=== PATIENT | female | born 1985 | race Caucasian/White ===

== ENCOUNTER → 2017-12-16 11:58 | Outpatient (CLI) | payer OTHER, SELFPAY ==
[2017-12-16 13:28] LABS: Thyroid Stim Hormone (TSH) 2.71 uIU/mL (0.358-3.74)
[2017-12-20 10:56] LABS: Anti-Thyroglobulin AB < 1.0 IU/mL (0.0-0.9); Thyroglobulin, Serum Qt. 17.7 ng/mL (1.5-38.5); Thyroid Peroxidase AB 11 IU/mL (0-34)
== END ==
PROVIDERS: Family Provider Internal Medicine; PCP Internal Medicine; Visit Provider Internal Medicine
DX: R53.83 Other fatigue (principal)
CPT/HCPCS: 36415; 84432; 84443; 86376; 86800

== ENCOUNTER → 2018-03-18 13:15 | Outpatient (CLI) | payer OTHER, SELFPAY ==
[2018-03-18 14:53] LABS: Potassium 4.3 mmol/L (3.5-5.1)
== END ==
PROVIDERS: Family Provider Internal Medicine; PCP Internal Medicine; Referring Provider Dermatology; Visit Provider Dermatology
DX: L72.8 Other follicular cysts of the skin and subcutaneous tissue (principal); Z79.899 Other long term (current) drug therapy
CPT/HCPCS: 36415; 84132

== ENCOUNTER 2021-07-07 14:18 | Outpatient (CLI) | payer BC, SELFPAY ==
--- NOTE | 2021-07-07 14:30 | CT_ITS ---
EXAM: CT MAXILLOFACIAL SINUSES WITHOUT INTRAVENOUS CONTRAST CLINICAL INDICATION: SINUSITIS TECHNIQUE: Helically acquired images were obtained of the maxillofacial sinuses without intravenous contrast. This CT exam was performed using one or more of the following dose reduction techniques: automated exposure control, adjustment of the mA and/or kV according to patient size, and/or use of iterative reconstruction technique. This report was created using [employer] report generation technology. RADIATION DOSE: CTDIvol = 33.06 mGy, DLP = 821.45 mGy-cm COMPARISON: None. FINDINGS: MAXILLARY SINUSES: Maxillary sinus disease. This is worse on the left side. Ostiomeatal complexes are normally formed. SPHENOID SINUSES: Clear. FRONTAL SINUSES: Clear. ETHMOID AIR CELLS: Minimal ethmoid sinus disease. NASAL CAVITY/SEPTUM: Nasal septum is midline. Nasal turbinates are unremarkable. BONES/JOINTS: Anterior cranial fossa is unremarkable. ORBITS: Unremarkable. DENTAL: Unremarkable as visualized. No periodontal osseous erosion. CT/Sinus/Facial Bone IMPRESSION: 1. Maxillary sinus disease. This is worse on the left side. 2. Minimal ethmoid sinus disease. Electronically Signed: Nathen Strauss MD at 19:02 EDT ,
== END 2021-07-07 23:59 | disposition home or self-care (01) ==
LOC: CT 14:28
PROVIDERS: PCP Internal Medicine; Referring Provider Otolaryngology; Visit Provider Otolaryngology
DX: J32.8 Other chronic sinusitis (principal); H69.83 Other specified disorders of Eustachian tube, bilateral
CPT/HCPCS: 70486

== ENCOUNTER 2021-10-13 21:01 | Emergency (ER) | payer BC, SELFPAY ==
[2021-10-13 21:01] VITALS: BP 118/81; PULSE 71; RESP 17; TEMP 36.6; O2SAT 99; BMI 23.5
--- NOTE | 2021-10-13 21:42 | EDS_ITS ---
HPI History of Present Illness HPI Narrative: Kicked in her right thigh by a horse Chief Complaint: Trauma Informant: patient Occured/Mechanism Mechanism/Context: Yes injury and Yes blunt trauma Onset/Context/Timing Onset: Today and Hours Context: Sudden Onset Timing: Continuous Quality of Pain: Dull and Aching Current Severity: Moderate Maximum Severity: Moderate Associated Symptoms Associated Symptoms: Negative for Parasthesia, Weakness or Loss of Funtion Narrative Narrative: 35-year-old healthy female history of hypothyroid disease and depression and reflux. Was walking with her draft horse. It got spooked and kicked her in her right anterior lateral mid thigh. No other injuries. Complaining of pain. This occurred just under 2 hours ago. No prior surgery to her right femur or hip. She denies any knee pain. Prior similar symptoms: No Recent Illness/Hospitalization: No PFSH PFSH Home Medications sertraline 100 mg tablet (Zoloft) 100 mg PO DAILY 07/05/16 [History Last Taken Unknown] levothyroxine 50 mcg tablet 1 tab PO DAILY 10/13/21 [History Last Taken Unknown] Allergy/AdvReac Type Severity Reaction Status Date / Time latex Allergy Swelling Verified 10/13/21 21:04 Social History Smoking Status: Never smoker ROS ROS ED ROS Narrative Denies recent illness. Review of Systems ROS Unobtainable: Denies due to encephalopathy Constitutional Constitutional ED: Denies chills Eyes Eyes: Denies blurry vision ENT ENT ED: Denies ear pain Cardiovascular Cardiovascular: Denies chest pain Respiratory/Chest Respiratory/Chest: Denies cough Gastrointestinal Gastrointestinal: Denies abdominal pain Genitourinary Genitourinary ED: Denies dysuria Musculoskeletal Musculoskeletal: Denies arthralgias Integumentary Denies abscess Neurologic Neurologic: Denies headache(s) Psychiatric Psychiatric: Denies anxiety Endocrine Endocrinology: Denies polydipsia Hematologic/Lymphatic Hematologic/Lymphatic: Denies easy bleeding Allergic/Immunologic Allergic/Immunologic ED: Denies mouth swelling EXAM Physical Exam Narrative Exam Narrative: Well-appearing 35-year-old female. Vital signs stable afebrile. H EENT exam u nremarkable atraumatic. C-spine nontender. Full range of motion her neck. Back and spine nontender. Lungs clear. Heart regular rhythm. Chest wall nontender. Abdomen soft nontender. No trauma. Pelvic girdle intact. 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 Lower extremities she has bruising contusion right medial lateral anterior right thigh. She can do full flexion and extension to both hips, both knees ankle and feet. Right foot has normal dorsi plantar flexion. Normal DP pulse. Knee and hip are nontender. Const Vital Signs: 10/13/21 21:01 Temperature 97.9 F Temperature Source Temporal Pulse Rate 71 Respiratory Rate 17 Blood Pressure 118/81 H Blood Pressure Mean 93 Pulse Ox 99 Oxygen Delivery Method Room Air Positive well nourished and well developed; Negative for obese, cachectic, contractures or unkempt General Appearance ED: well developed; Negative for unkempt, cachectic or contractures Nutritional Appearance: Negative for cachectic or obese HEENT Reports moist mucous membranes normocephalic and atraumatic; Negative for trauma or tenderness Eyes PERRL General Eye ED: Negative for other Neck full ROM and supple Thyroid: Negative for tender or other Lymph Lymphatic: Negative for other Chest Wall inspection of chest normal and palpation of chest normal Chest: Negative for other Resp normal respiratory effort Auscultation: Negative for rales, rhonchi, wheezes or diminished lung sounds Cardio regular rate, regular rhythm, S1 normal heart sound, S2 normal heart sound and no murmurs Rate: Negative for bradycardia Rhythm: Negative for abnormal rhythm Bruits: Negative for other GI non-tender, non-distended and no masses Inspection: Negative for abdominal distention Auscultation: normoactive bowel sounds Palpation: soft; Negative for tender or guarding Back/Spine no CVA tenderness General Back: Negative for CVA tenderness Cervical Spine: Negative for cervical spine tenderness Thoracic Spine / Upper Back: Negative for thoracic spinal tenderness Lumbar Spine / Lower Back: Negative for lumbar spinal tenderness Extremity normal to inspection and full ROM Extremity Narrative: Except right anterior medial lateral thigh has a contusion and bruise. No bony deformity. Normal range of motion. Right foot is neurovascular intact. General Extremety ED: Negative for cyanosis or edema General Extremity: Negative for cyanosis or edema Neuro oriented x3, CN's II-XII intact bilaterally, moves all extremities and no sensory deficits noted Sensorium / Orientation: alert, oriented to person, oriented to place and oriented to time; Negative for orientation impaired, confused, lethargic or stuporous Motor Exam: strength 5/5 throughout Psych mental status grossly normal Appearance: Negative for unkempt Mood & Affect: Negative for anxious Skin no wounds Skin Narrative: Contusions and bruising right medial lateral anterior lateral thigh. Lesions: no lesions Rashes: no rashes Trauma: Negative for abrasion or laceration MDM MDM MDM Narrative Medical decision making narrative: 35-year-old female kicked by draft horse in her right thigh. Has normal range of motion. Leg is neurovascular intact. X-ray will be obtained to rule out fracture. She did not want a thing for pain. Repeat exam patient doing well at 10:07 PM. I went over her x-rays with her. Ice and elevate Motrin and Tylenol for pain. Follow-up if not proving or worse. Radiography Diagnostic Testing: Right femur x-ray 2 views interpreted by myself shows no acute fracture. No dislocation. Soft tissue swelling. Discussed with patient. Discharge Plan Triage Chief Complaint: Trauma ED Provider: Jase Antoine Dx/Rx/DC Orders Clinical Impression: Contusion of right anterior thigh Instructions: ED Contusion, Lower Extremity Prescriptions: No Action sertraline [Zoloft] 100 MG tablet 100 mg PO DAILY levothyroxine 50 mcg tablet 1 tab PO DAILY Label Comments: take 1 tablet by mouth once daily ON AN EMPTY STOMACH Primary Care Provider: Zora To Referrals: Zora oT MD [Primary Care Provider] - 1 Week if not improving Activity Restrictions/Additional Instructions: Ice and elevate leg is much as possible to decrease pain and swelling. I would ice this down tonight is much as possible and at least 5 times tomorrow for 30 minutes to an hour each time. Motrin for pain and swelling. Tylenol for pain. This is going to be really sore. It should progressively improve over the next week. If not improving needs to be reevaluated. Disposition Disposition: Home, Self Care
--- NOTE | 2021-10-13 21:47 | RAD_ITS ---
STUDY: X-RAY - RIGHT FEMUR REASON FOR STUDY: Female, 35 years old. trauma TECHNIQUE: 4 view(s) of the femur. COMPARISON: None. FINDINGS: Normal mineralization. No acute fracture or dislocation. Joint spaces at the hip and knee are preserved. No knee effusion. Benign bone island is incidentally noted within the distal right femur. Benign 13 mm ovoid bubbly lesion of bone with a sclerotic margin within the right femoral neck. RAD/Femur Min 2 Views IMPRESSION: No acute abnormality; no acute fracture or dislocation. Electronically Signed: Kin Marks MD at 22:13 EDT ,
== END 2021-10-13 22:14 | disposition home or self-care (01) ==
PROVIDERS: Emergency Provider Emergency Medicine; PCP Internal Medicine; Visit Provider Emergency Medicine
DX: S70.11XA Contusion of right thigh, initial encounter (principal); W55.12XA Struck by horse, initial encounter; Y93.K1 Activity, walking an animal; E03.9 Hypothyroidism, unspecified; F32.A Depression, unspecified; K21.9 Gastro-esophageal reflux disease without esophagitis; Z79.890 Hormone replacement therapy; Z79.899 Other long term (current) drug therapy
CPT/HCPCS: 73552; 99281; 99282

== ENCOUNTER → 2022-02-09 | Outpatient (CLI) | payer BC, SELFPAY ==
--- NOTE | 2022-02-09 15:38 | RAD_ITS ---
STUDY: X-RAY - ABDOMEN/PELVIS REASON FOR EXAM: Female, 36 years old. CHANGE IN BOWEL TECHNIQUE: AP supine and upright views. 3 images. COMPARISON: None. FINDINGS: The bowel gas pattern is normal. There is no bowel obstruction or free intraperitoneal air. Moderate amount of stool throughout the colon. No abnormal mass or calcification is seen. The lung bases are clear. RAD/Abd Inc Decub and/or Erect IMPRESSION: No acute findings. Electronically Signed: Linn Choudhury MD at 5:49 EST ,
[2022-02-09 18:37] LABS: CRP < 2.90 mg/L (0.0-3.0)
[2022-02-11 14:09] LABS: Endomysial Antibody IgA Negative (Negative)
[2022-02-11 16:08] LABS: Immunoglobulin A 226 mg/dL (87-352); t-Transglutaminase IgA <2 U/mL (0-3)
== END | disposition home or self-care (01) ==
LOC: MTLAB 15:37
PROVIDERS: PCP Internal Medicine; Referring Provider Internal Medicine Gastroenterology; Visit Provider Internal Medicine Gastroenterology
DX: R19.4 Change in bowel habit (principal)
CPT/HCPCS: 36415; 74019; 82784; 83516; 86140; 86255

== ENCOUNTER → 2022-03-09 | Outpatient (CLI) | payer BC, SELFPAY ==
--- NOTE | 2022-03-09 07:55 | RAD_ITS ---
STUDY: SMALL BOWEL FOLLOW-THROUGH EXAMINATION. REASON FOR EXAM: Female, 36 years old. Left-sided abdominal pain and cramping. Diarrhea. FLUOROSCOPY TIME (if supplied): ( 68 seconds ) minutes/seconds. 14 images were submitted. TECHNIQUE: A fundraising coordinator film was obtained. Following this, the patient ingested barium. The small bowel follow-through examination was performed. COMPARISON: None. FINDINGS: A large amount of fecal material is seen throughout the colon. There is evidence of narrowing in the irregular appearance of the distal and terminal ileum with separation of the small bowel loops. There is evidence of inflammatory thickening of the haustra of the descending colon. Crohn''s disease should be ruled out. RAD/Small Bowel Series Only IMPRESSION: Findings of Crohn''s disease involving the distal and terminal ileum as well as the descending colon. Electronically Signed: Francisco Bustillo MD at 12:54 EST ,
== END | disposition home or self-care (01) ==
LOC: RAD 07:53
PROVIDERS: PCP Internal Medicine; Visit Provider Internal Medicine Gastroenterology
DX: K50.90 Crohn's disease, unspecified, without complications (principal)
CPT/HCPCS: 74250

== ENCOUNTER 2022-12-10 13:07 | Day surgery (SDC) | payer BC, SELFPAY ==
--- NOTE | 2022-12-03 14:39 | PCM.HP.BLA ---
History and Physical Date of Admission: 12/10/22 HPI: The patient is a 37 year old female presenting for pre-operative visit. She is scheduled for hysteroscopy with endometrial ablation, for heavy menses on 12/10/22. Procedure discussed along with risks, benefits and complications. Other alternatives discussed for management. Consent form signed? Yes. ? ? PAST MEDICAL HISTORY PAST MEDICAL HISTORY Diagnosis Date ? Anxiety ? ? Bite by animal week before 2016 ? had rabies vaccine, bit by racoon ? Depressive disorder, not elsewhere classified 03/09/2008 ? Anxiety since 2003 ? LGSIL on Pap smear of cervix 11/20/2016 ? ? PAST SURGICAL HISTORY PAST SURGICAL HISTORY Procedure Laterality Date ? PAST SURGICAL HISTORY OF ? 2000 ? Bunionectomy ? PAST SURGICAL HISTORY OF ? 2002 ? [place] [facility] ? PAST SURGICAL HISTORY OF ? ? ? root canal ? ? ? CURRENT MEDICATIONS Current Outpatient Medications Medication Sig Dispense Refill ? LINZESS 290 mcg capsule Take 290 mcg by mouth once daily. ? ? ? sertraline (ZOLOFT) 100 mg tablet take 1 tablet by mouth once daily 90 tablet 1 ? buPROPion XL (WELLBUTRIN XL) 300 mg 24 hr tablet Take 1 tablet by mouth once daily. 90 tablet 3 ? levothyroxine (SYNTHROID) 50 mcg tablet take 1 tablet by mouth once daily ON AN EMPTY STOMACH (FOR THYROID) 90 tablet 3 ? Omeprazole Magnesium (PRILOSEC OTC) 20 mg tablet Take 1 tablet by mouth daily before breakfast. 1/2 hr before meal. ? 0 ? No current facility-administered medications for this visit. ? ? ALLERGIES: Latex ? PERSONAL HISTORY: SOCIAL HISTORY Social History ? Tobacco Use ? Smoking status: Never ? Smokeless tobacco: Never Vaping Use ? Vaping Use: Never used Substance Use Topics ? Alcohol use: Yes ? ? Comment: rare ? Drug use: No ? FAMILY HISTORY: FAMILY HISTORY FAMILY HISTORY Problem Relation Age of Onset ? None Mother ? ? None Father ? ? None Brother ? ? Colon Cancer Paternal Aunt 40 ? ? REVIEW OF SYMPTOMS: GENERAL: denies fevers or chills ENDOCRINOLOGY: has not been on steroids Cardiology : denies palpitations or chest pain Respiratory: denies SOB or cough Hematology: denies history of prolonged bleeding or easy bruising or VTE Allergy: Denies history of personal or family history of allergy to anesthesia ? PHYSICAL EXAMINATION: ? VITALS: Blood pressure 102/66, pulse 74, height 5' 6.5 (1.689 m), weight 162 lb (73.5 kg), last menstrual period 11/30/2022, SpO2 98 %. ? GENERAL: The patient is well nourished, well hydrated in no acute distress. , The patient is oriented to time, place, and person. NECK: Supple. No lynphadenopathy, normal thyroid, no thyromegaly. LUNGS: Clear to auscultation bilaterally. no wheezes, rhonchi or rales HEART: Regular rate and rhythm, Normal heart sounds, and No murmurs or gallops EMB 10/30- secretroy endometrium ? pap and hrhpv neg 08/25/22 ? pelvic US [facility] ? 1060 ?- ?US FEMALE PELVIS TRANSVAG ?/ PROCEDURE REASON: Menorrhagia with regular cycle ?? ? * * * * Physician Interpretation * * * * ?EXAMINATION: ? TRANSVAGINAL AND LIMITED TRANSABDOMINAL FEMALE PELVIC ULTRASOUND CLINICAL HISTORY: ? Menorrhagia with regular cycle ? , ?36 years old. TECHNIQUE: Sonography of the pelvis was performed by transvaginal and limited transabdominal technique. ?Color and spectral Doppler imaging of the ovarian arteries and veins also performed. ?Images were obtained and stored in a permanent archive. MQ: ?[facility]_2021 COMPARISON: None RESULT: Uterus: -Size: 7 x 3.8 x 4.3 cm -Orientation: Anteverted -Endometrial echo complex: Evaluation of the endometrium was adequate. No endometrial abnormality. The endometrial echo complex measured 0.6 cm. -Cervix: Unremarkable. -Adenomyosis assessment: There are no sonographic findings of adenomyosis. -Fibroids: There are no fibroids ? ? ? IMPRESSION: menorrhagia ? PLAN: The risks/benefits/alternatives and personal involved for the planned hysteroscopy with endometrial ablation were reviewed with the patient. Her questions were answered to her satisfaction and she desires to proceed. Consent was signed. I reviewed with her postop instructions and expectations. ? ? I have reviewed and updated past medical and surgical history, medications and allergies Assessment & Plan Assessment/Plan (1) Menorrhagia:
[2022-12-10] VITALS (10 sets, daily range): BP systolic 98–112; BP diastolic 64–83; PULSE 54–100; RESP 14–16; TEMP 36.1–36.9; O2SAT 93–100; BMI 24.5
[2022-12-10 13:37] LABS: Internal QC Validated? YES +Cl - CLEAR BKGD; Pregnancy, Urine Negative Negative
[2022-12-10] MEDS: Lactated Ringers 1,000 ML 15 ML IV (13:41)
[2022-12-10] MEDS: Ketorolac 30 MG/ML Syringe IV (13:42)
[2022-12-10] MEDS: Acetaminophen 500 MG Tablet 1000 MG PO (13:42)
[2022-12-10 13:46] LABS: Hematocrit 41.3 % (37-47); Hemoglobin 13.8 g/dL (12.0-15.0); Mean Corp Hgb Conc 33.4 g/dL (32-36); Mean Corpuscular Hgb 31.3 pg (27.0-32.0); Mean Corpuscular Volume 93.7 fL (81-99); Mean Platelet Vol. 9.5 fl (6.2-12.0); Platelet Count 354 K/mm3 (150-450); RBC Distribution Width SD 41.5 fl (35.1-43.9); Red Blood Count 4.41 M/mm3 (4.2-5.4); White Blood Count 7.2 K/mm3 (4.4-11.0)
--- NOTE | 2022-12-10 15:05 | DCINST_ITS ---
Discharge Instructions Diet Discharge Diet: No restrictions Activity Discharge Activity: May Shower Return to work on:: 12/14/22 May resume sexual activity in: 1-2 weeks and 2 weeks Lifting Restrictions: none Dressing / Incision Call your doctor if your incision/area has: Sudden Increased Bleeding and Foul Smelling Discharge Call your doctor if you observe: Fever of 101 or Higher and Using more than 1 pad per hour (for 2 hrs in a row) Follow Up Care Please Follow Up With: Christina Jeffery MD When: No follow-up is needed. Call the office or contact us via [employer] for nonurgent concerns. Test Results: Test results from this visit will be discussed in further detail at your follow- up appointment, if applicable. Discharge Plan Admission Primary Reason for Your Visit: Endometrial ablation Attending Provider: Christina Jeffery Primary Care Provider: Zora To Discharge Orders/Prescriptions Prescriptions: Continued bupropion HCl 150 mg tablet extended release 24 hr 150 mg PO DAILY Patient Comments: take 1 tablet by mouth once daily omeprazole magnesium [Prilosec OTC] 20 mg tablet,delayed release (DR/EC) 20 mg PO DAILY sertraline [Zoloft] 100 MG tablet 100 mg PO DAILY levothyroxine 50 mcg tablet 1 tab PO DAILY Patient Comments: take 1 tablet by mouth once daily ON AN EMPTY STOMACH Referrals / Follow Up: Zora To MD [Primary Care Provider] - Disposition Disposition (needs filled in before D/C Order can be placed): Home, Self Care
--- NOTE | 2022-12-10 15:06 | PCM.OPRPT ---
Problems Associated Problem List Diagnoses (1) Menorrhagia: Report of Operation Date of Procedure: 12/10/22 Pre-Operative Diagnosis: menorrhagia Post-Operative Diagnosis: same Surgery/Procedure Performed:: Hysteroscopy With Coco Endometrial Ablation Description of Surgical Findings:: Normal endometrial cavity with ragged endometrium. Both tubal ostia identified. Normal cervix and vagina Surgeon: Christina Jeffery weaving inspector: Michele Tony MS3 Type of Anesthesia: MAC/Supplemental/Local Anesthesiologist: Haris Roblero Special Medications: none Specimen's removed: none Drains: none Estimated Blood Loss (mL): 10 Fluids Replaced: 900 Description of Procedure: The patient was taken to the OR where she was prepped and draped in dorsal lithotomy position. The weighted speculum was placed in the vagina and the anterior lip of the cervix was grasped with a single-tooth tenaculum. A paracervical block was administered with [1% lidocaine with 1-100,000 epinephrine solution]. The cervix was dilated serially with Hegar dilators. The [5mm] hysteroscope was placed into the uterine cavity and the above findings were noted. Bilateral tubal ostia were identified. The uterus sounded to 8cm and the cervical length was 3.5cm. The endometrial cavity length was 4.5cm. The hysteroscope was removed. The Coco device was set to 4.5cm. The instrument was then seated into the endometrial cavity and the indicator was in the green. The cervical seal balloon was inflated and the uterine integrity test was passed. The ablation procedure was initiated and completed without interruption. During the ablation procedure gentle traction was held on the tenaculum and the Coco device was held up against the uterine fundus. When the ablation procedure was completed the Coco was removed. The tenaculum was removed and the tenaculum site was noted to be hemostatic. All sponge and needle counts were correct. A vaginal sweep was performed by me. The patient was awakened and taken to the recovery room in stable condition. Hysteroscopic ins: 150cc normal saline Hysteroscopic outs:60cc Findings: Endometrial cavity: Normal, no fibroids or polyps noted Cervix: Normal Vagina: Normal Grafts/Implants Used: none Procedure Start Time: 15:10 Procedure Stop Time: 15:21 Complications none Admit VTE Documentation VTE Present on Admission: No VTE Mechan Device Prophylaxis: SCD's VTE Pharm Prophylaxis ordered?: No Reason prophylaxis not ordered:: Procedure Not Indicated
[2022-12-10] MEDS: Lidocaine 1% /Epi 1:100 (20ml) 20 ML Vial (15:10)
== END 2022-12-10 17:13 | disposition home or self-care (01) ==
LOC: SDC 13:08 → AC 13:10
PROVIDERS: Anesthesiology; PCP Internal Medicine; Referring Provider Obstetrics & Gynecology; Visit Provider Obstetrics & Gynecology
PROC: 0U5B8ZZ Destruction of Endometrium, Via Natural or Artificial Opening Endoscopic (ICD-10-PCS; CPT 58558; principal; 2022-12-10 14:25)
DX: N92.0 Excessive and frequent menstruation with regular cycle (principal); E03.9 Hypothyroidism, unspecified; K21.9 Gastro-esophageal reflux disease without esophagitis; Z79.890 Hormone replacement therapy; Z79.899 Other long term (current) drug therapy; Z87.19 Personal history of other diseases of the digestive system
CPT/HCPCS: 58563; 00952; 81025; 85027; J7120; J2405

== ENCOUNTER → 2024-11-13 | Outpatient (CLI) | payer BC, SELFPAY ==
--- NOTE | 2024-11-13 13:17 | RAD_ITS ---
PROCEDURE: L/S SPINE COMP/W BENDING VIEWS 11/13/2024 REASON FOR EXAM: CHRONIC LOW BACK PAIN TECHNIQUE: L/S SPINE COMP/W BENDING VIEWS COMPARISON: None. FINDINGS: BONES: Five [id number] lumbar vertebral bodies. No fracture or focal osseous lesion. Alignment is anatomic in the sagittal projection and is maintained throughout flexion and extension. DISC/DEGENERATIVE CHANGES: Disc spaces are preserved. SOFT TISSUES: Moderate colonic stool. RAD/L/S Spine Comp/w Bending Views IMPRESSION: No acute abnormality seen. Reading Location: [id number]
--- NOTE | 2024-11-13 13:40 | RAD_ITS ---
PROCEDURE: SACRUM-COCCYX MIN 2 VIEWS 11/13/2024 REASON FOR EXAM: CHRONIC BACK PAIN TECHNIQUE: SACRUM-COCCYX MIN 2 VIEWS COMPARISON: None FINDINGS: Bones: No fracture seen. Joints: No significant joint space narrowing is present. Other: RAD/Sacrum-Coccyx min 2 Views IMPRESSION: No acute abnormality is seen. Reading Location: [facility]
== END | disposition home or self-care (01) ==
PROVIDERS: PCP Internal Medicine; Referring Provider Anesthesiology Pain Medicine; Visit Provider Anesthesiology Pain Medicine
DX: M54.50 Low back pain, unspecified (principal); G89.29 Other chronic pain
CPT/HCPCS: 72114; 72220

== ENCOUNTER 2025-01-19 05:21 | Day surgery (SDC) | payer BC, SELFPAY ==
[2025-01-11 10:13] LABS: Magnesium 2.0 mg/dL (1.5-2.2)
[2025-01-19] VITALS (13 sets, daily range): BP systolic 98–118; BP diastolic 67–80; PULSE 67–95; RESP 16; TEMP 36.3–36.9; O2SAT 95–100; BMI 24.9
[2025-01-19] MEDS: Magnesium 1 GM over 15 mins IV (06:04)
[2025-01-19] MEDS: Lactated Ringers 1,000 ML 15 ML IV (06:05)
[2025-01-19] MEDS: Lidocaine 1% (5 ml sdv) 5 ML Vial 3 ML IV (07:38)
[2025-01-19] MEDS: Midazolam 2 MG/2 ML Syringe IV (07:38)
[2025-01-19] MEDS: fentaNYL 100 MCG/2 ML Ampul IV (07:53)
[2025-01-19] MEDS: Cefazolin 1 GM/5 ML Vial 2 GM IV (07:59)
[2025-01-19] MEDS: Thrombin 5,000 IU Kit (PSA) 5,000 IU Vial 5000 IU TOPICAL (09:04)
[2025-01-19] MEDS: Lactated Ringers 1,000 ML 999 ML IV (10:33)
== END 2025-01-19 14:13 | disposition home or self-care (01) ==
LOC: SDC 05:21 → AC 05:24
PROVIDERS: Anesthesiology; PCP Internal Medicine; Referring Provider Podiatrist Foot & Ankle Surgery; Visit Provider Podiatrist Foot & Ankle Surgery
PROC: (CPT 28740; principal; 2025-01-19 07:15)
DX: M20.11 Hallux valgus (acquired), right foot (principal); M19.071 Primary osteoarthritis, right ankle and foot; E03.9 Hypothyroidism, unspecified; E78.2 Mixed hyperlipidemia; E55.9 Vitamin D deficiency, unspecified; K21.00 Gastro-esophageal reflux disease with esophagitis, without bleeding; Z79.82 Long term (current) use of aspirin; Z79.899 Other long term (current) drug therapy
CPT/HCPCS: 28740; 28289; 20900; 38206; 64450; 01480; 36415; 73620; 76000; 82962; 83735; 87081; C1713; C9399; J2405; J3475